=== PATIENT | male | born 1985 | race Caucasian/White ===

== ENCOUNTER 2022-01-11 07:14 | Emergency (ER) | payer OTHER ==
[~2022-01-11] VITALS: Ht 190.5 cm; Wt 140.0 kg
[~2022-01-11 07:14] MED LIST: CEPH-357 PO
[2022-01-11] MEDS ORDERED: IBUP-1984 PO (08:46)
[2022-01-11 09:03] VITALS: BP 146/78
== END 2022-01-11 09:05 | disposition home or self-care (01) ==
LOC: ER 07:14
DX: S93.401A Sprain of unspecified ligament of right ankle, initial encounter (principal); M25.571 Pain in right ankle and joints of right foot; F41.9 Anxiety disorder, unspecified; F31.9 Bipolar disorder, unspecified; Z88.6 Allergy status to analgesic agent; Z79.2 Long term (current) use of antibiotics; Z79.899 Other long term (current) drug therapy; X58.XXXA Exposure to other specified factors, initial encounter; Y93.01 Activity, walking, marching and hiking; Y92.89 Other specified places as the place of occurrence of the external cause; Y99.8 Other external cause status
CPT/HCPCS: 29515; 73610; 99284